=== PATIENT | male | born 1970 | race Caucasian/White ===

== ENCOUNTER 2020-04-06 09:09 | Outpatient (CLI) | payer OTHER ==
--- NOTE | 2020-04-06 11:42 | CT ---
CT NECK SOFT TISSUES WITH CONTRAST: Date: 04/06/2020 HISTORY: 49-year-old male with ICD-10: R59.0, cervical lymphadenopathy. According to the radiologic technologist chief, Patient feels a lump in his throat for months, with hoarseness. TECHNIQUE: Marked was placed at the site of the palpable lump in the right side of the neck. Postcontrast scan was performed from the skull base through [facility]. COMPARISON: None. FINDINGS: The external marker at the right side of the neck does not correspond to any enlarged lymph node, or any solid or cystic mass. Images of the larynx are degraded because of motion (patient may have been vocalizing during the time of the scan). No gross, large laryngeal mass is identified. There is ACDF hardware at C6 and C7, with successful ankylosis between the vertebral bodies across th e disc space. The submandibular, parotid, carotid, retropharyngeal, perivertebral, parapharyngeal, pharyngeal mucos al, submandibular, sublingual, watch and clock maker and repairer, and posterior cervical, spaces, are unremarkable. There is severe facet DJD on the left at C3-4 and C4-5. IMPRESSION: 1. No cervical lymphadenopathy or mass. 2. Status post anterior cervical diskectomy and fusion at C6-7. 3. High grade left-sided facet osteoarthrosis in the cervical spine. 4. Otherwise negative. POS: AH
== END 2020-04-06 09:10 | disposition home or self-care (01) ==
LOC: SCSCT 09:09
PROVIDERS: ATTEND Otolaryngology Plastic Surgery within the Head & Neck
DX: R59.0 Localized enlarged lymph nodes (principal); M47.812 Spondylosis without myelopathy or radiculopathy, cervical region; Z98.1 Arthrodesis status
CPT/HCPCS: 70491

== ENCOUNTER 2025-02-27 05:52 | Day surgery (SDC) | payer OTHER ==
[2025-02-26 11:13] VITALS: BMI 32.1
[~2025-02-27 05:52] MED LIST: Fluorouracil 100 MG, Enoxaparin 25 MG, EPINEPHrine 0.3 MG in Ophthalmic Irrigation Solu... IRR SCH
[2025-02-27] MEDS ORDERED: Cyclopentolate 1% Opth Drop 2 ML BOT ONE (06:34)
[2025-02-27 07:00] LABS: #Basophils 0.07 10x3/uL (0.0-0.2); #Eosinophils 0.25 10x3/uL (0.0-0.7); #Monocytes 0.92 10x3/uL (0.11-0.59); #Neutrophils 6.52 10x3/uL (1.40-6.50); %Basophils 0.7 % (0.0-1.0); %Eosinophils 2.5 % (0.0-10.0); %Lymphocytes 21.8 % (21.0-51.0); %Monocytes 9.2 % (0.0-10.0); %Neutrophils 65.5 % (42.0-75.0); Hematocrit 40.6 % (42.0-52.0); Hemoglobin 13.4 g/dL (14.0-18.0); Mean Corpuscular Hemoglobin 30.1 pg (27.0-31.0); Mean Corpuscular Volume 91.2 fL (78.0-98.0); Platelet Count 283 10x3/uL (130-400); Red Blood Cell (RBC) Count 4.45 mill/uL (4.70-6.10); White Blood Cell (WBC) Count 9.96 10x3/uL (4.8-10.8)
[2025-02-27 07:17] LABS: INR-International Normal Ratio 1.9; PTT 38.8 sec (22.9-36.1); Prothrombin Time 21.8 sec (12.0-14.7)
[2025-02-27 07:33] LABS: Anion Gap 12 mmol/L (10-20); BUN (Urea Nitrogen) 12 mg/dL (8.4-25.7); Calc. Creatinine Clearance 140 mL/min (70-130); Calcium 8.7 mg/dL (7.8-10.44); Carbon Dioxide 26 mmol/L (22-29); Chloride 106 mmol/L (98-107); Glucose 99 mg/dL (70-105); Potassium 3.9 mmol/L (3.5-5.1); Sodium 140 mmol/L (136-145)
[2025-02-27] MEDS ORDERED: fentaNYL PF 100 MCG/2 ML SYRINGE ONE (08:15)
[2025-02-27] MEDS ORDERED: Lidocaine 4% PF 5 ML AMP ONE (08:27)
[2025-02-27] MEDS ORDERED: CEFAZOLIN 1 GM VIAL ONE (08:27)
[2025-02-27] MEDS ORDERED: PROPOFOL 200 MG/20 ML VIAL ONE (08:27)
[2025-02-27] MEDS ORDERED: Lidocaine 1% PF 5 ML VIAL ONE (08:27)
== END 2025-02-27 09:56 | disposition home or self-care (01) ==
LOC: SDC 05:52
PROVIDERS: ATTEND Ophthalmology Retina Specialist
PROC: 08T53ZZ Resection of Left Vitreous, Percutaneous Approach (ICD-10-PCS; principal; 2025-02-27)
DX: H33.012 Retinal detachment with single break, left eye (principal); I10 Essential (primary) hypertension; E78.5 Hyperlipidemia, unspecified; I25.10 Atherosclerotic heart disease of native coronary artery without angina pectoris; J45.909 Unspecified asthma, uncomplicated; Z79.899 Other long term (current) drug therapy
CPT/HCPCS: 67025; 80048; 85025; 85610; 85730; 93005; 93010; J0166; J0690; J1650; J2250; J2704; J3301; J3490; J9190